=== PATIENT | female | born 1990 | race Hispanic/Latino ===

== ENCOUNTER 2020-11-29 18:32 | Emergency (ER) | payer MEDICAID, OTHER ==
[~2020-11-29] VITALS: Ht 160 cm; Wt 89.8 kg
[2020-11-29 18:34] VITALS: BP 138/76
[2020-11-29] MEDS ORDERED: IBUPROFEN 600 MG TABLET PO ONE (20:00)
[2020-11-29] MEDS ORDERED: SULFAMETHOX-TMP DS 800/160 TAB PO ONE (20:00)
[2020-11-29] MEDS ORDERED: SULF1TAB42 PO (20:10)
[2020-11-29] MEDS ORDERED: IBUP-2070 PO (20:10)
[2020-11-29 21:10] VITALS: BP 130/72
== END 2020-11-29 21:11 | disposition home or self-care (01) ==
LOC: EDH 18:32
DX: L03.311 Cellulitis of abdominal wall (principal); I10 Essential (primary) hypertension

== ENCOUNTER 2021-12-09 08:07 | Emergency (ER) | payer MEDICAID, OTHER ==
[~2021-12-09] VITALS: Ht 157.5 cm; Wt 87.5 kg
[~2021-12-09 08:07] MED LIST: IBUP-2070 PO; SULF1TAB42 PO
[2021-12-09 08:47] LABS: APPEARANCE,URINE CLEAR (CLEAR); BILIRUBIN,URINE NEGATIVE (NEGATIVE); COLOR,URINE YELLOW (YELLOW); GLUCOSE, URINE (UA) >=1000 mg/dL (NEGATIVE); KETONES,URINE 15 mg/dL (NEGATIVE); LEUKOCYTE ESTERASE ,URINE TRACE (NEGATIVE); NITRATE,URINE POSITIVE (NEGATIVE); OCCULT BLOOD,URINE TRACE-LYSED (NEGATIVE); PROTEIN,URINE 30 mg/dL (NEGATIVE); UROBILINOGEN,URINE 0.2 mg/dL (0.2-1.0)
[2021-12-09 08:53] LABS: BASOPHILS % (AUTO) 0.5 % (0.0-5.0); EOSINOPHILS % (AUTO) 1.9 % (0.0-8.0); HEMATOCRIT 42.2 % (36-48); LYMPHOCYTES % (AUTO) 38.5 % (21.0-51.0); MEAN CORPUSCULAR HEMOGLOBIN 28.6 pg (27.0-33.0); MEAN CORPUSCULAR HGB CONC 33.2 g/dL (32.0-36.0); MEAN CORPUSCULAR VOLUME 86.3 fL (79-99); MONOCYTES % (AUTO) 7.1 % (3.0-13.0); NEUTROPHILS % (AUTO) 51.6 % (40.0-77.0); PLATELET COUNT (AUTO) 295 K/uL (130-400); RED BLOOD CELL COUNT(AUTO) 4.89 MIL/uL (4.00-5.50); RED CELL DISTRIBUTION WIDTH 12.7 % (11.0-15.5); WHITE BLOOD COUNT (AUTO) 7.6 K/uL (4.8-10.8)
[2021-12-09 08:56] LABS: BACTERIA,URINE Few /HPF (None Seen); RBC,URINE 0-1 /HPF (0-1); SQUAMOUS EPITHELIAL CELL,UR Few /HPF (0-2); WBC,URINE 51-100 /HPF (0-1)
[2021-12-09 09:16] LABS: ALBUMIN 3.5 g/dL (3.5-5.0); CREATININE 0.6 mg/dL (0.5-1.5); POTASSIUM 4.3 mmol/L (3.5-5.1); TOTAL PROTEIN, SERUM 7.8 g/dL (6.0-8.3)
[2021-12-09] MEDS ORDERED: ONDANSETRON 4MG INJ IVP ONE (09:30)
[2021-12-09] MEDS ORDERED: KETOROLAC 30MG VIAL (30MG/ML) IVP ONE (09:30)
[2021-12-09] MEDS ORDERED: HYDROCODONE/ACETAMINOPHEN 5/325 MG TAB PO ONE (09:30)
[2021-12-09] MEDS ORDERED: CEFTRIAXONE 1G VIAL IVP ONE (09:30)
[2021-12-09 09:38] LABS: ABG OXYGEN SATURATION 59.2 % (95.0-99.0); BASE EXCESS,VENOUS BLOOD GAS -0.4 (-2.0-3.0); PCO2,VENOUS BLOOD GAS 44 (32-45); PH,VENOUS BLOOD GAS 7.374 (7.350-7.450)
[2021-12-09 12:18] VITALS: BP 115/81
[2021-12-09] MEDS ORDERED: ONDA4TAB10 PO (12:46)
[2021-12-09] MEDS ORDERED: IBUP-2070 PO (12:46)
[2021-12-09] MEDS ORDERED: SULF1TAB42 PO (12:46)
== END 2021-12-09 13:02 | disposition home or self-care (01) ==
LOC: EDH 08:07
DX: N12 Tubulo-interstitial nephritis, not specified as acute or chronic (principal); E11.65 Type 2 diabetes mellitus with hyperglycemia; Z79.1 Long term (current) use of non-steroidal anti-inflammatories (NSAID)
CPT/HCPCS: 99284; 74176; 96374; 96375; 80053; 82803; 83690; 85025; 87077; 87088; 87186; 83605; 82010; 81001; 81025; 36415; 36600; J0696; J2405; J1885

== ENCOUNTER 2022-02-01 11:58 | Emergency (ER) | payer OTHER ==
[~2022-02-01] VITALS: Ht 152.4 cm; Wt 90.7 kg
[~2022-02-01 11:58] MED LIST changes: +ONDA4TAB10 PO
[2022-02-01 12:15] VITALS: BP 143/92
[2022-02-01 12:21] LABS: BASOPHILS % (AUTO) 0.4 % (0.0-5.0); EOSINOPHILS % (AUTO) 0.8 % (0.0-8.0); HEMATOCRIT 41.9 % (36-48); LYMPHOCYTES % (AUTO) 39.4 % (21.0-51.0); MEAN CORPUSCULAR HEMOGLOBIN 28.4 pg (27.0-33.0); MEAN CORPUSCULAR HGB CONC 33.4 g/dL (32.0-36.0); MONOCYTES % (AUTO) 5.4 % (3.0-13.0); NEUTROPHILS % (AUTO) 53.6 % (40.0-77.0); PLATELET COUNT (AUTO) 353 K/uL (130-400); RED BLOOD CELL COUNT(AUTO) 4.93 MIL/uL (4.00-5.50); RED CELL DISTRIBUTION WIDTH 12.5 % (11.0-15.5); WHITE BLOOD COUNT (AUTO) 7.2 K/uL (4.8-10.8)
[2022-02-01 12:51] LABS: CREATININE 0.7 mg/dL (0.5-1.5); POTASSIUM 4.3 mmol/L (3.5-5.1)
[2022-02-01 12:55] LABS: ALBUMIN 3.5 g/dL (3.5-5.0); TOTAL PROTEIN, SERUM 7.9 g/dL (6.0-8.3)
[2022-02-01] MEDS ORDERED: OMEP20TA20 PO (14:41)
== END 2022-02-01 14:53 | disposition home or self-care (01) ==
LOC: EDH 11:58
DX: K29.70 Gastritis, unspecified, without bleeding (principal)
CPT/HCPCS: 36415; 71045; 80053; 81025; 83690; 84484; 85025; 93005

== ENCOUNTER 2024-02-12 22:58 | Emergency (ER) | payer SELFPAY ==
[~2024-02-12] VITALS: Ht 162.6 cm; Wt 83.9 kg
[~2024-02-12 22:58] MED LIST changes: +OMEP20TA20 PO; +ONDA-243 PO; -ONDA4TAB10 PO
[2024-02-12] MEDS: 0.9%NACL 1000ML 1,000 ML IV STA (23:19)
[2024-02-12] MEDS: ketOROlac 15MG/ML VIAL (15MG/ML) IV STA (23:19)
[2024-02-12] MEDS: metoCLOPRAmide 10 MG/2 ML VIAL IVP STA (23:19)
[2024-02-12] MEDS: ondanSETRON 4MG INJ IVP ONE (23:19)
[2024-02-13] MEDS: morPHINE 2 MG SYG IVP STA (00:23)
[2024-02-13] MEDS: 0.9%NACL 1000ML 1,000 ML IV STA (00:40)
[2024-02-13] MEDS: 0.9%NACL 1000ML 1,000 ML IV ONE (00:41)
[2024-02-13 01:06] LABS: BASOPHILS # (AUTO) 0.03 K/uL (0.00-0.20); BASOPHILS % (AUTO) 0.4 % (0.0-5.0); EOSINOPHILS # (AUTO) 0.15 K/uL (0.00-0.70); HEMATOCRIT 36.7 % (36-48); IMMATURE GRANULOCYTE ABSOLUTE 0.03 K/uL (0-1); LYMPHOCYTES # (AUTO) 3.1 K/uL (1.0-4.8); LYMPHOCYTES % (AUTO) 41.5 % (21.0-51.0); MEAN CORPUSCULAR HEMOGLOBIN 29.4 pg (27.0-33.0); MEAN CORPUSCULAR HGB CONC 34.3 g/dL (32.0-36.0); MEAN CORPUSCULAR VOLUME 85.7 fL (79-99); MONOCYTES # (AUTO) 0.7 K/uL (0.1-1.0); MONOCYTES % (AUTO) 9.7 % (3.0-13.0); NEUTROPHILS # (AUTO) 3.5 K/uL (1.8-7.7); PLATELET COUNT (AUTO) 243 K/uL (130-400); RED BLOOD CELL COUNT(AUTO) 4.28 MIL/uL (4.00-5.50); RED CELL DISTRIBUTION WIDTH 13.2 % (11.0-15.5); WHITE BLOOD COUNT (AUTO) 7.5 K/uL (4.8-10.8)
[2024-02-13 01:17] LABS: CREATININE 0.8 mg/dL (0.5-1.0); POTASSIUM 3.7 mmol/L (3.5-5.1)
[2024-02-13 01:18] LABS: HCG,QUALITATIVE URINE NEGATIVE (NEGATIVE)
[2024-02-13 01:20] LABS: APPEARANCE,URINE CLEAR (CLEAR); BILIRUBIN,URINE NEGATIVE (NEGATIVE); COLOR,URINE LIGHT-YELLOW (YELLOW); GLUCOSE, URINE (UA) >=1000 mg/dL (NEGATIVE); KETONES,URINE 5 mg/dL (NEGATIVE); LEUKOCYTE ESTERASE ,URINE NEGATIVE Leu/uL (NEGATIVE); NITRATE,URINE NEGATIVE (NEGATIVE); OCCULT BLOOD,URINE NEGATIVE (NEGATIVE); PH,URINE 5.5 (5.0-8.0); PROTEIN,URINE NEGATIVE (NEGATIVE); UROBILINOGEN,URINE 0.2 mg/dL (0.2-1.0)
[2024-02-13 01:21] LABS: ADD UA MICROSCOPIC YES
[2024-02-13 01:22] LABS: BACTERIA,URINE RARE /HPF (None Seen); SQUAMOUS EPITHELIAL CELL,UR FEW /HPF (0-2)
[2024-02-13 01:29] VITALS: BP 136/87; PULSE 92; RESP 18; TEMP 98.4; O2SAT 99
[2024-02-13] MEDS: INSULIN humuLIN R 100 UNIT/ML 3ML IV STA (01:44)
== END 2024-02-13 02:04 | disposition home or self-care (01) ==
LOC: EDH 22:58
DX: E10.65 Type 1 diabetes mellitus with hyperglycemia (principal); D36.7 Benign neoplasm of other specified sites; R51.9 Headache, unspecified; R10.2 Pelvic and perineal pain
CPT/HCPCS: 99284; 96374; 96375 ×2; 80048; 84702; 85025; 87086; 82948 ×3; 81001; 81025; 36415; J7030 ×2; J2405; J2765; J1885; J2270